=== PATIENT | male | born 1960 | race Caucasian/White ===

== ENCOUNTER 2022-07-06 09:26 | Day surgery (SDC) | payer BC, SELFPAY ==
[2022-07-05 10:58] VITALS: BMI 23.6
[2022-07-06 09:45] VITALS: BP 127/69; PULSE 64; RESP 18; TEMP 36.2; O2SAT 98
--- NOTE | 2022-07-06 09:53 | P.PN_ITS ---
[facility] Medical History Arthritis Hemorrhoid History of back pain Knee pain Surgical History H/O hemorrhoidectomy Family History Other No significant family history Social History Smoking Status: Never smoker alcohol intake: current substance use type: marijuana current occupational status: employed Travel in the last 8 weeks: None [facility] Anesthesia Checklist Patient Identification Patient Identification: Arm Band and Verbal (Name & ) Structural Data Admitted From: Home Planned Operative Procedure/s: Colonoscopy Consent for Planned Operative Procedure(s) Verified: Yes NPO Status Verified Time NPO: 00:00 Airway Assessment C-Spine Mobility Assessed: Yes TMJ Mobility Assessed: Yes Dentition: Good Dentition Neurological Assessment Level of Consciousness: Awake Hx Seizures: No Numbness or tingling in extremities: No Anesthesia Plan Anesthesia Risk discussed: Yes Anesthesia Plan: Verified ASA Class: I Anesthesia Type: MAC
--- NOTE | 2022-07-06 10:05 | [facility].SCOPE ---
Procedure: Date: 07/06/22 Patient Date of :: 1960 Procedure Performed:: Colonoscopy with polypectomy Indications:: Screening Performing Provider:: Elijah Payan MD Referring Provider:: Dr. Arboleda Sedation:: Monitored anesthesia care Procedure:: After informed consent was obtained the patient was taken to the endoscopy suite. Sedation ensued after the patient was transferred to the left lateral decubitus position. Pulse, blood pressure, and oxygen saturation were monitored throughout the procedure. Digital rectal exam revealed no significant abnormality. The colonoscope was placed in position. The entire colon was evaluated. The colonoscope was carefully removed and the patient was transferred to recovery in stable condition. Please see findings and specimens below for detail. Findings:: Bowel preparation moderate Fairly severe spasticity Significant sigmoid tortuosity Hemorrhoidal cushions/tags Polyps (see specimens) Specimens:: Polyp at 50 cm (cold snare) Polyp at 20 cm (cold snare) Recommendations:: Timing of repeat colonoscopy is pending pathology will likely be between 2-3 years. Complications:: No immediate Estimated blood obtained (mL): 1
[2022-07-06 10:11] VITALS: O2SAT 98
[2022-07-06 10:55] VITALS: BP 113/62; PULSE 51; RESP 16; TEMP 36.2; O2SAT 96
[2022-07-06 11:05] VITALS: BP 117/73; PULSE 51; RESP 17; O2SAT 99
[2022-07-06 11:15] VITALS: BP 108/60; PULSE 58; RESP 16; O2SAT 99
[2022-07-06 11:25] VITALS: BP 107/51; PULSE 56; RESP 16; TEMP 36.2; O2SAT 99
== END 2022-07-06 11:25 | disposition home or self-care (01) ==
PROVIDERS: PCP Family Medicine; Visit Provider Surgery
PROC: 0DJD8ZZ Inspection of Lower Intestinal Tract, Via Natural or Artificial Opening Endoscopic (ICD-10-PCS; CPT 45385; principal; 2022-07-06 10:30)
DX: Z12.11 Encounter for screening for malignant neoplasm of colon (principal); K63.5 Polyp of colon; Z79.899 Other long term (current) drug therapy
CPT/HCPCS: 45385; 88305

== ENCOUNTER 2024-05-17 16:21 | Outpatient (CLI) | payer BC, SELFPAY | END 2024-05-17 23:59 | disposition home or self-care (01) | LOC: LAB.DROPOF 05-18 16:21 | PROVIDERS: PCP Nurse Practitioner; Visit Provider Nurse Practitioner | DX: R10.9 Unspecified abdominal pain (principal) | CPT/HCPCS: 87086 ==